=== PATIENT | female | born 1935 | race Caucasian/White ===

== ENCOUNTER 2019-08-02 13:35 | Inpatient (IN) | payer MEDICARE, BC ==
[2019-08-02] MEDS ORDERED: SODIUM CHLORIDE 0.9% 500 ML 500 ML IV STA (14:39)
--- NOTE | 2019-08-02 15:05 | ED ---
General Adult HPI - General Chief complaint: Dizziness Stated complaint: Dizziness Time Seen by Provider: 08/02/19 14:34 Source: patient, family, RN notes reviewed, old records reviewed Mode of arrival: ambulatory Limitations: no limitations - History of Present Illness Initial comments: 83-year-old female presenting for evaluation of dizziness. Patient's symptoms 7 present for the past 2-3 days. She states they do seem worse today. She had been prescribed meclizine without improvement. She states when she stands she feels like she may fall backwards. She denies URI symptoms. Denies cough. Denies chest pain or palpitations. Denies abdominal pain nausea vomiting. Denies vision changes, she does have macular degeneration and is legally blind. She denies focal numbness or weakness. She went to [facility] and was sent to the emergency department for evaluation. Only medication the patient is currently on is aspirin. - Related Data Home Medications Medication Instructions Recorded Confirmed Aspirin EC [Ecotrin] 650 mg PO DAILY 08/02/19 08/02/19 Meclizine [Antivert] 25 mg PO TID PRN 08/02/19 08/02/19 Allergies Allergy/AdvReac Type Severity Reaction Status Date / Time No Known Allergies Allergy Verified 08/02/19 14:44 Review of Systems ROS Statement: Those systems with pertinent positive or pertinent negative responses have been documented in the HPI. ROS Other: All systems not noted in ROS Statement are negative. Past Medical History Past Medical History: No Reported History History of Any Multi-Drug Resistant Organisms: None Reported Past Surgical History: Appendectomy, Orthopedic Surgery Additional Past Surgical History / Comment(s): eye surgery Past Psychological History: No Psychological Hx Reported Smoking Status: Never smoker Past Alcohol Use History: None Reported Past Drug Use History: None Reported General Exam Limitations: no limitations General appearance: alert, in no apparent distress Head exam: Present: atraumatic, normocephalic Eye exam: Present: other (Strabismus) ENT exam: Present: normal exam Neck exam: Present: normal inspection. Absent: tenderness Respiratory exam: Present: normal lung sounds bilaterally, respiratory distress Cardiovascular Exam: Present: regular rate, normal rhythm GI/Abdominal exam: Present: soft. Absent: distended, tenderness, guarding Extremities exam: Present: normal inspection, normal capillary refill. Absent: pedal edema Neurological exam: Present: alert, oriented X3, CN II-XII intact, other (Normal finger to nose, no ataxia, 5 out of 5 strength in all extremities, normal sensation) Psychiatric exam: Present: normal affect, normal mood Skin exam: Present: warm, dry, intact. Absent: cyanosis, diaphoretic Course Vital Signs 08/02/19 08/02/19 13:38 15:34 Temperature 97.4 F L Pulse Rate 67 64 Respiratory 20 18 Rate Blood Pressure 197/78 195/81 O2 Sat by Pulse 98 97 Oximetry EKG Findings - EKG Comments: EKG Findings:: EKG: Normal sinus rhythm, no ST segment elevation, T-wave abnormality in the precordial leads. Rate of 68, CA interval 168, QRS duration 90, QTC 444 Medical Decision Making - Medical Decision Making 83-year-old female presenting with dizziness and gait instability. This does not appear to be related to vertigo on exam. Blood pressure is quite elevated emergency department with no history of hypertension. There is concern for CVA related to the dizziness. CT is performed which shows chronic changes and possible old lacunar infarct with no intracranial hemorrhage or mass effect. Patient has normal CBC, normal CMP she has an EKG showing normal sinus rhythm. She has had no previous workup for CVA in the past. She is initiated on Norv asc, given full-strength aspirin in the emergency department will be admitted for further stroke workup including neurology consultation. Case is discussed with the admitting physician Dr. Hi - Lab Data Result diagrams: 08/02/19 15:01 08/02/19 15:01 Lab Results 08/02/19 08/02/19 08/02/19 Range/Units 15: 15:01 15:01 WBC 8.2 (3.8-10.6) k/uL RBC 4.73 (3.80-5.40) m/uL Hgb 14.2 (11.4-16.0) gm/dL Hct 43.2 (34.0-46.0) % MCV 91.3 (80.0-100.0) fL MCH 30.1 (25.0-35.0) pg MCHC 32.9 (31.0-37.0) g/dL RDW 14.0 (11.5-15.5) % Plt Count 286 (150-450) k/uL Neutrophils % 60 % Lymphocytes % 25 % Monocytes % 7 % Eosinophils % 6 % Basophils % 1 % Neutrophils # 4.9 (1.3-7.7) k/uL Lymphocytes # 2.0 (1.0-4.8) k/uL Monocytes # 0.5 (0-1.0) k/uL Eosinophils # 0.5 (0-0.7) k/uL Basophils # 0.1 (0-0.2) k/uL PT 9.9 (9.0-12.0) sec INR 0.9 (<1.2) Sodium 139 (137-145) mmol/L Potassium 4.3 (3.5-5.1) mmol/L Chloride 103 (98-107) mmol/L Carbon Dioxide 28 (22-30) mmol/L Anion Gap 8 mmol/L BUN 20 H (7-17) mg/dL Creatinine 0.87 (0.52-1.04) mg/dL Est GFR (CKD-EPI)AfAm 71 (>60 ml/min/1.73 sqM) Est GFR (CKD-EPI)NonAf 62 (>60 ml/min/1.73 sqM) Glucose 93 (74-99) mg/dL Calcium 9.7 (8.4-10.2) mg/dL Total Bilirubin 0.6 (0.2-1.3) mg/dL AST 23 (14-36) U/L ALT 21 (9-52) U/L Alkaline Phosphatase 93 (38-126) U/L Troponin I (0.000-0.034) ng/mL Total Protein 7.5 (6.3-8.2) g/dL Albumin 4.3 (3.5-5.0) g/dL 08/02/19 Range/Units 15:01 WBC (3.8-10.6) k/uL RBC (3.80-5.40) m/uL Hgb (11.4-16.0) gm/dL Hct (34.0-46.0) % MCV (80.0-100.0) fL MCH (25.0-35.0) pg MCHC (31.0-37.0) g/dL RDW (11.5-15.5) % Plt Count (150-450) k/uL Neutrophils % % Lymphocytes % % Monocytes % % Eosinophils % % Basophils % % Neutrophils # (1.3-7.7) k/uL Lymphocytes # (1.0-4.8) k/uL Monocytes # (0-1.0) k/uL Eosinophils # (0-0.7) k/uL Basophils # (0-0.2) k/uL PT (9.0-12.0) sec INR (<1.2) Sodium (137-145) mmol/L Potassium (3.5-5.1) mmol/L Chloride (98-107) mmol/L Carbon Dioxide (22-30) mmol/L Anion Gap mmol/L BUN (7-17) mg/dL Creatinine (0.52-1.04) mg/dL Est GFR (CKD-EPI)AfAm (>60 ml/min/1.73 sqM) Est GFR (CKD-EPI)NonAf (>60 ml/min/1.73 sqM) Glucose (74-99) mg/dL Calcium (8.4-10.2) mg/dL Total Bilirubin (0.2-1.3) mg/dL AST (14-36) U/L ALT (9-52) U/L Alkaline Phosphatase (38-126) U/L Troponin I <0.012 (0.000-0.034) ng/mL Total Protein (6.3-8.2) g/dL Albumin (3.5-5.0) g/dL Disposition Clinical Impression: Cerebrovascular accident (CVA) Disposition: ADMITTED IP TO THIS HOSP Condition: Stable Is patient prescribed a controlled substance at d/c from ED?: No Referrals: Jocy Saini MD [Primary Care Provider] - 1-2 days Decision to Admit Reason: Admit from EC Decision Date: 08/02/19 Decision Time: 16:49
[2019-08-02 15:32] LABS: Basophils # (A) 0.1 k/uL (0-0.2); Basophils % (A) 1 %; Eosinophils # (A) 0.5 k/uL (0-0.7); Eosinophils % (A) 6 %; HCT 43.2 % (34.0-46.0); HGB 14.2 gm/dL (11.4-16.0); Lymphocytes % (A) 25 %; MCH 30.1 pg (25.0-35.0); MCHC 32.9 g/dL (31.0-37.0); MCV 91.3 fL (80.0-100.0); Mean Platelet Volume 6.6; Monocytes # (A) 0.5 k/uL (0-1.0); Monocytes % (A) 7 %; Neutrophils # (A) 4.9 k/uL (1.3-7.7); Neutrophils % (A) 60 %; Platelet Count 286 k/uL (150-450); RBC 4.73 m/uL (3.80-5.40); WBC 8.2 k/uL (3.8-10.6)
--- NOTE | 2019-08-02 15:33 | CT ---
EXAMINATION TYPE: CT brain wo con DATE OF EXAM: 08/02/2019 HISTORY: Dizziness CT DLP: 1064.4 mGycm. Automated Exposure Control for Dose Reduction was Utilized. TECHNIQUE: CT scan of the head is performed without contrast. COMPARISON: None. FINDINGS: There is no acute intracranial hemorrhage or midline shift identified. There is diffuse v entricular and sulcal prominence consistent with diffuse cerebral atrophy. Findings most prominent ov er the bilateral frontal and temporal lobes . There is low-attenuation in the periventricular white m atter consistent with chronic small vessel ischemic change. Possible old lacunar infarct versus promi nent Virchow-Javed space right basal ganglia coronal image 26. Scleral calcification left globe. Visu alized sinuses are clear IMPRESSION: No acute intracranial hemorrhage or midline shift. There is moderate cerebral atrophy m ost prominent over bilateral frontal and temporal lobes and mild chronic small vessel ischemic change s noted.
[2019-08-02 15:39] LABS: INR 0.9 (<1.2); Prothrombin Time 9.9 sec (9.0-12.0)
[2019-08-02 16:02] LABS: Albumin 4.3 g/dL (3.5-5.0); Calcium 9.7 mg/dL (8.4-10.2); Potassium 4.3 mmol/L (3.5-5.1); Total Bilirubin 0.6 mg/dL (0.2-1.3); Total Protein 7.5 g/dL (6.3-8.2)
[2019-08-02] MEDS ORDERED: ASPIRIN 325 MG TAB PO STA (16:05)
[2019-08-02] MEDS ORDERED: amLODIPine 5 MG TAB PO STA (16:43)
[2019-08-02] MEDS ORDERED: ACETAMINOPHEN TAB 325 MG TAB PO PRN (16:43)
[2019-08-02] MEDS: SODIUM CHLORIDE 0.9% 1,000 ML IV SCH (17:19)
--- NOTE | 2019-08-02 17:43 | ECHOF ---
Referral Reason:Thrombus MEASUREMENTS -------- HEIGHT: 154.9 cm WEIGHT: 68.0 kg BP: RVIDd: 1.8 cm (< 3.3) IVSd: 1.8 cm (0.6 - 1.1) LVIDd: 1.9 cm (3.9 - 5.3) LVPWd: 1.5 cm (0.6 - 1.1) IVSs: 2.0 cm LVIDs: 1.1 cm LVPWs: 1.7 cm LAESV Index (A-L): 24.76 ml/m Ao Diam: 3.1 cm (2.0 - 3.7) AV Cusp: 1.8 cm (1.5 - 2.6) LA Diam: 2.7 cm (2.7 - 3.8) MV EXCURSION: 12.108 mm (> 18.000) MV EF SLOPE: 27 mm/s (70 - 150) EPSS: 0.5 cm MV E Dann: 0.81 m/s MV DecT: 248 ms MV A Dann: 0.97 m/s MV E/A Ratio: 0.84 AR PHT: 251 ms RAP: 5.00 mmHg RVSP: 19.38 mmHg FINDINGS -------- Sinus rhythm. This was a technically adequate study. The cavity size is decreased. There is severe concentric left ventricular hypertrophy. Overall le ft ventricular systolic function is normal with, an EF between 60 - 65 %. The diastolic filling pat tern is normal for the age of the patient 15.38. The right ventricle is normal in size. The left atrial size is normal. Normal LA size by volume 22+/-6 ml/m2. The right atrial size is normal. The aortic valve is trileaflet and appears structurally normal. Trace amount of aortic regurgitatio n. The mitral valve is normal. The mitral valve leaflets are mildly thickened. Mild mitral regurgita tion is present. The tricuspid valve appears structurally normal. Mild tricuspid regurgitation present. Right vent ricular systolic pressure is normal at < 35 mmHg. There is no pulmonic regurgitation present. The aortic root size is normal. Normal inferior vena cava with normal inspiratory collapse consistent with estimated right atrial pre ssure of 5 mmHg. There is a moderate, generalized pericardial effusion present. CONCLUSIONS -------- 1. Sinus rhythm. 2. This was a technically adequate study. 3. The cavity size is decreased. 4. There is severe concentric left ventricular hypertrophy. 5. Overall left ventricular systolic function is normal with, an EF between 60 - 65 %. 6. The diastolic filling pattern is normal for the age of the patient 15.38 7. The right ventricle is normal in size. 8. The left atrial size is normal. 9. Normal LA size by volume 22+/-6 ml/m2. 10. The right atrial size is normal. 11. The aortic valve is trileaflet and appears structurally normal. 12. Trace amount of aortic regurgitation. 13. The mitral valve is normal. 14. The mitral valve leaflets are mildly thickened. 15. Mild mitral regurgitation is present. 16. The tricuspid valve appears structurally normal. 17. Mild tricuspid regurgitation present. 18. Right ventricular systolic pressure is normal at < 35 mmHg. 19. There is no pulmonic regurgitation present. 20. The aortic root size is normal. 21. Normal inferior vena cava with normal inspiratory collapse consistent with estimated right atrial pressure of 5 mmHg. 22. There is a moderate, generalized pericardial effusion present. WELDER TACK: Sanjuanita Gonzales RDCS
[2019-08-02] MEDS ORDERED: LABETALOL 5 MG/ML VIAL MDV IVP STA (18:03)
--- NOTE | 2019-08-02 19:50 | US ---
EXAMINATION TYPE: US carotid duplex BILAT DATE OF EXAM: 08/02/2019 COMPARISON: NONE CLINICAL HISTORY: Stenosis. EXAM MEASUREMENTS: RIGHT: Peak Systolic Velocity (PSV) cm/sec ----- Right CCA: 70.2 ----- Right ICA: 84.2 ----- Right ECA: 105.6 ICA/CCA ratio: 1.2 RIGHT: End Diastole cm/sec ----- Right CCA: 14.2 ----- Right ICA: 16.0 ----- Right ECA: 6.0 LEFT: Peak Systolic Velocity (PSV) cm/sec ----- Left CCA: 81.4 ----- Left ICA: 64.5 ----- Left ECA: 60.8 ICA/CCA ratio: 0.8 LEFT: End Diastole cm/sec ----- Left CCA: 15.7 ----- Left ICA: 17.9 ----- Left ECA: 4.2 VERTEBRALS (direction of flow): Right Vertebral: Antegrade Left Vertebral: Antegrade Rhythm: Normal Mild atherosclerotic changes with no significant velocity increases. IMPRESSION: There is antegrade flow in the vertebral arteries. The images and measurements suggest 25-35% stenosis in both internal carotid arteries. Mild plaque formation. Criteria for Assigning % of Stenosis / Diameter reduction (Estimation based on the indirect measurements of the internal carotid artery velocities (ICA PSV). 1. Normal (no stenosis)=ICA PSV < 125 cm/s: ratio < 2.0: ICA EDV<40 cm/s. 2. Less than 50% stenosis=ICA PSV < 125 cm/s: ratio < 2.0: ICA EDV<40 cm/s. 3. 50 to 69% stenosis=ICA PSV of 125 to 230 cm/s: ration 2.0 ? 4.0: ICA EDV 40-100 cm/s. 4. Greater than 70% stenosis to near occlusion= ICA PSV > 230 cm/s: ratio > 4.0: ICA EDV > 100 cm/s. 5. Near occlusion= ICA PSV velocities may be low or undetectable: variable ratio and ICA EDV. 6. Total occlusion=unable to detect flow.
[2019-08-03 04:33] LABS: Cholesterol 283 mg/dL (<200); HDL Cholesterol 70 mg/dL (40-60); LDL Cholesterol,Calculated 179 mg/dL (0-99); Triglycerides 172 mg/dL (<150)
[2019-08-03] MEDS: SODIUM CHLORIDE 0.9% 1,000 ML IV SCH ×2 (08:30→16:52)
[2019-08-03] MEDS ORDERED: amLODIPine 5 MG TAB PO SCH (09:00)
[2019-08-03] MEDS: ASPIRIN 325 MG TAB PO SCH (16:52)
--- NOTE | 2019-08-03 19:03 | P.HPIM ---
History of Present Illness H&P Date: 08/03/19 Chief Complaint: Dizziness Ms. Ziegler is an 83-year-old female with a past medical history of macular degeneration, legally blind coming into the hospital with a chief complaint of dizziness. Patient states that her symptoms started 2 days prior to the admission. She was prescribed meclizine but did not have relief with it and so came into the hospital for further evaluation. Patient states that when she stands she feels dizzy and that she would be falling back. Patient states that her is diagnosed with Alzheimer's disease and she has been having a lot of stress because of it. Patient denies having any falls because of the dizziness. She denies having any chest pain or palpitations. No cough or difficulty in breathing. Patient denies having any nausea vomiting or diaphoresis. No abdominal pain. No dysuria or hematuria. She denies having any fevers, chills or rhinitis. Patient takes only aspirin 81 mg at home. Patient denies having any headaches, slurring of speech or weakness of her extremities. She denies having any loss of bowel or bladder contents. In the emergency department patient had blood work done showing normal hemoglobi n, sodium and pressure within normal limits. Creatinine is at 0.87 and slightly elevated BUN at 20. Troponin was less than 0.012. Patient had a CT of the brain that was negative for any acute intracranial process was showing mild chronic small vessel ischemic changes. She also had a carotid artery Doppler that was showing 25-35% stenosis in both internal carotid arteries with mild polyp formation. Echocardiogram showing ejection fraction of 60-65%. She had orthostatics checked, but after giving her IV fluids which were negative. Patient still has mild dizziness on and off. Review of Systems REVIEW OF SYSTEMS: PSYCH: No anxiety or depression. NEURO:No c/o weakness of the extremties, No facial droop, No speech abnormalities. VASCULAR: no edema HEMATOLOGIC: No history of easy bleeding and bruising . No recent infections . RESPIRATORY: No cough, No SOB, No chest discomfort. IMMUNE: No infections INTEGUMENT: no rashes OPHTHALMOLOGIC: No blurry vision and no eye discharge : No dysuria or hematuria ACCOUNT INFORMATION CLERK: No bleeding PV CARDIAC: No chest pain , shortness of breath , paroxysmal nocturnal dyspnea MUSCULOSKELETAL : No Aches or pains in the joints or muscles. GI: No abdominal pain, Nausea or vomiting. No constipation or diarrhea. Past Medical History Past Medical History: No Reported History Additional Past Medical History / Comment(s): vertigo History of Any Multi-Drug Resistant Organisms: None Reported Past Surgical History: Appendectomy, Orthopedic Surgery Additional Past Surgical History / Comment(s): eye surgery Past Anesthesia/Blood Transfusion Reactions: No Reported Reaction Past Psychological History: No Psychological Hx Reported Smoking Status: Never smoker Past Alcohol Use History: None Reported Past Drug Use History: None Reported - Past Family History Mother Family Medical History: Myocardial Infarction ([place]) Father Family Medical History: CVA/TIA Medications and Allergies Home Medications Medication Instructions Recorded Confirmed Type Aspirin EC [Ecotrin] 650 mg PO DAILY 08/02/19 08/02/19 History Meclizine [Antivert] 25 mg PO TID PRN 08/02/19 08/02/19 History Allergies Allergy/AdvReac Type Severity Reaction Status Date / Time No Known Allergies Allergy Verified 08/02/19 14:44 Physical Exam Vitals: Vital Signs Temp Pulse Pulse Pulse Pulse Pulse Resp 08/03/19 16:00 98.4 F 86 16 08/03/19 11:31 98.6 F 71 16 08/03/19 08:00 98.3 F 87 94 77 16 08/03/19 03:15 98.2 F 75 16 08/02/19 23:00 98.3 F 65 16 08/02/19 21:13 08/02/19 19:44 98.2 F 71 16 08/02/19 18:34 66 18 BP BP BP BP Pulse Ox 08/03/19 16:00 129/74 92 L 08/03/19 11:31 129/67 94 L 08/03/19 08:00 133/74 113/71 122/71 93 L 08/03/19 03:15 128/58 100 08/02/19 23:00 135/63 97 08/02/19 21:13 140/65 08/02/19 19:44 193/76 96 08/02/19 18:34 146/67 96 Intake and Output 08/03/19 08/03/19 08/03/19 06:59 14:59 22:59 Intake Total 358 240 Output Total 800 300 600 Balance -800 58 -360 Intake: Oral 358 240 Output: Urine 800 300 600 Other: Voiding Method Bedpan # Voids 1 Weight 68.6 kg GEN. APPEARANCE: alert, in no apparent distress HEAD EXAM: atraumatic, normocephalic, normal inspection EYE EXAM: Blind in both eyes. No pallor. No icterus. ENT EXAM: normal exam, mucous membranes moist NECK EXAM: normal inspection. No thyromegaly. RESPIRATORY EXAM: normal lung sounds bilaterally. No wheeze or crackles. CARDIOVASCULAR EXAM: regular rate, normal rhythm, normal heart sounds. No abnormal sounds. GI/ABDOMINAL EXAM: soft, normal bowel sounds. No guarding or rigidity or tenderness. EXTREMITIES EXAM: No pedal edema. NEUROLOGICAL EXAM: alert, oriented X3, no focal deficits. PSYCHIATRIC EXAM: normal affect, normal mood SKIN EXAM: No rash Results CBC & Chem 7: 08/02/19 15:01 08/02/19 15:01 Labs: Abnormal Lab Results - Last 24 Hours (Table) 08/02/19 Range/Units 15:01 Triglycerides 172 H (<150) mg/dL Cholesterol 283 H (<200) mg/dL LDL Cholesterol, Calc 179 H (0-99) mg/dL HDL Cholesterol 70 H (40-60) mg/dL Thrombosis Risk Factor Assmnt - Choose All That Apply Any of the Below Risk Factors Present?: Yes Each Factor Represents 1 point: Obesity (BMI >25) Each Risk Factor Represents 3 Points: Age 75 years or older Other congenital or acquired thrombophilia - If yes, enter type in comment: No Thrombosis Risk Factor Assessment Total Risk Factor Score: 4 Thrombosis Risk Factor Assessment Level: Moderate Risk Assessment and Plan Assessment: ASSESSMENT Dizziness Macular degeneration Legally blind PLAN: Patient is admitted for dizziness and so far workup has been negative head CT of the brain, carotid artery Doppler, echocardiogram. Patient still has dizziness on and off. Continue with IV fluids. Patient had only one set of troponins drawn so we will repeat troponins. Continue with current medication regimen. Further recommendations to follow depending on the progress of the pa tient.
[2019-08-04 06:20] LABS: Basophils % (A) 1 %; Eosinophils # (A) 0.4 k/uL (0-0.7); Eosinophils % (A) 6 %; HCT 37.1 % (34.0-46.0); HGB 12.1 gm/dL (11.4-16.0); Lymphocytes # (A) 1.9 k/uL (1.0-4.8); Lymphocytes % (A) 25 %; MCH 30.2 pg (25.0-35.0); MCHC 32.7 g/dL (31.0-37.0); MCV 92.4 fL (80.0-100.0); Mean Platelet Volume 6.5; Monocytes # (A) 0.6 k/uL (0-1.0); Monocytes % (A) 7 %; Neutrophils # (A) 4.7 k/uL (1.3-7.7); Neutrophils % (A) 60 %; Platelet Count 237 k/uL (150-450); RBC 4.02 m/uL (3.80-5.40); WBC 7.8 k/uL (3.8-10.6)
[2019-08-04 06:27] LABS: Calcium 8.4 mg/dL (8.4-10.2); Potassium 4.1 mmol/L (3.5-5.1)
[2019-08-04] MEDS: ASPIRIN 325 MG TAB PO SCH (08:05)
[2019-08-04] MEDS: SODIUM CHLORIDE 0.9% 1,000 ML IV SCH (10:00)
[2019-08-04 10:08] VITALS: RESP 18
[2019-08-04 11:13] VITALS: BP 133/61; PULSE 74; TEMP 98.2
--- NOTE | 2019-08-04 13:38 | P.DS ---
Providers Date of admission: 08/02/19 16:45 Expected date of discharge: 08/04/19 Attending physician: Destin Esquivel Primary care physician: Jocy Saini [facility] Course: Ms. Ziegler is an 83-year-old female with a past medical history of macular degeneration, legally blind coming into the hospital with a chief complaint of dizziness. Patient states that her symptoms started 2 days prior to the admission. She was prescribed meclizine but did not have relief with it and so came into the hospital for further evaluation. Patient states that when she stands she feels dizzy and that she would be falling back. Patient states that her is diagnosed with Alzheimer's disease and she has been having a lot of stress because of it. Patient denies having any falls because of the dizziness. She denies having any chest pain or palpitations. No cough or difficulty in breathing. Patient denies having any nausea vomiting or diaphoresis. No abdominal pain. No dysuria or hematuria. She denies having any fevers, chills or rhinitis. Patient takes only aspirin 81 mg at home. Patient denies having any headaches, slurring of speech or weakness of her extremities. She denies having any loss of bowel or bladder contents. In the emergency department patient had blood work done showing normal hemoglobin, sodium and pressure within normal limits. Creatinine is at 0.87 and slightly elevated BUN at 20. Troponin was less than 0.012. Hospital course - Patient had a CT of the brain that was negative for any acute intracranial process was showing mild chronic small vessel ischemic changes. She also had a carotid artery Doppler that was showing 25-35% stenosis in both internal carotid arteries with mild polyp formation. Echocardiogram showing ejection fraction of 60-65%. She had orthostatics checked, but after giving her IV fluids which were negative. Patient's blood pressure was running high, so the patient was started on Procardia after which her blood pressure responded. Patient is not dizzy anymore. This morning she woke up and took a shower all by herself and was not dizzy at all. Patient's and son at the bedside. She states that she is stable to go home. Vital Signs Temp 98.2 F 08/04/19 11:11 Pulse 74 08/04/19 11:11 Resp 18 08/04/19 11:11 BP 133/61 08/04/19 11:11 Pulse Ox 96 08/04/19 11:11 Intake & Output 08/03/19 08/04/19 08/04/19 18:59 06:59 18:59 Intake Total 1198 780 Output Total 900 850 900 Balance 298 -850 -120 Weight 69 kg Intake: IV 600 600 Sodium Chloride 0.9% 1, 600 600 000 ml @ 75 mls/hr IV . [id number] Rx#:[id number] Oral 598 180 Output: Urine 900 850 900 Other: Voiding Method Bedpan Toilet # Voids 1 Physical exam GEN. APPEARANCE: alert, in no apparent distress HEAD EXAM: atraumatic, normocephalic, normal inspection EYE EXAM: Blind in both eyes. No pallor. No icterus. ENT EXAM: normal exam, mucous membranes moist NECK EXAM: normal inspection. No thyromegaly. RESPIRATORY EXAM: normal lung sounds bilaterally. No wheeze or crackles. CARDIOVASCULAR EXAM: regular rate, normal rhythm, normal heart sounds. No abnormal sounds. GI/ABDOMINAL EXAM: soft, normal bowel sounds. No guarding or rigidity or tenderness. EXTREMITIES EXAM: No pedal edema. NEUROLOGICAL EXAM: alert, oriented X3, no focal deficits. PSYCHIATRIC EXAM: normal affect, normal mood SKIN EXAM: No rash - Labs CBC & Chem 7: 08/04/19 05:46 08/04/19 05:46 Labs: Abnormal Lab Results - Last 24 Hours (Table) 08/04/19 Range/Units 05:46 Chloride 109 H (98-107) mmol/L Glucose 105 H (74-99) mg/dL DISCHARGE DIAGNOSIS Dizziness - resolved Hypertension - new onset Macular degeneration Legally blind Follow-up: Discussed in detail with the patient to continue taking Procardia and her prescription is sent to her pharmacy. Patient is advised to follow up with her PCP in 2-3 days. Patient Condition at Discharge: Stable Plan - Discharge Summary Discharge Rx Participant: No New Discharge Prescriptions: New NIFEdipine XL [Procardia XL] 60 mg PO DAILY 30 Days #30 tab.[id number] Continue Meclizine [Antivert] 25 mg PO TID PRN PRN Reason: DIZZINESS Aspirin EC [Ecotrin] 650 mg PO DAILY Discharge Medication List Aspirin EC [Ecotrin] 650 mg PO DAILY 08/02/19 [History] Meclizine [Antivert] 25 mg PO TID PRN 08/02/19 [History] NIFEdipine XL [Procardia XL] 60 mg PO DAILY 30 Days #30 tab.er.24 08/04/19 [Rx] Follow up Appointment(s)/Referral(s): Jocy Saini MD [Primary Care Provider] - 1-2 days Discharge Disposition: HOME SELF-CARE
== END 2019-08-04 14:46 | disposition home or self-care (01) | DRG 305 ==
LOC: EC 13:35 → 3SCARD 16:45
PROVIDERS: ADMIT Hospitalist; ATTEND Hospitalist
DX: I10 Essential (primary) hypertension (principal); H35.30 Unspecified macular degeneration; H54.8 Legal blindness, as defined in USA; Z86.73 Personal history of transient ischemic attack (TIA), and cerebral infarction without residual deficits; R47.81 Slurred speech; R53.1 Weakness; Z82.49 Family history of ischemic heart disease and other diseases of the circulatory system; Z79.82 Long term (current) use of aspirin; Z79.899 Other long term (current) drug therapy
CPT/HCPCS: 36415; 70450; 80048; 80053; 80061; 84484; 85025; 85610; 93005; 93306; 93880; 96361; 96374; 99285

== ENCOUNTER 2023-02-03 10:31 | Day surgery (SDC) | payer BC, MEDICARE ==
[2023-02-02 11:29] VITALS: BMI 28.3
[~2023-02-03 10:31] MED LIST: LACTATED RINGERS 1,000 ML IV SCH; LIDOCAINE 1% (10MG/ML) FOR IV START INTRADERMA PRN
[2023-02-03 10:57] LABS: Glucose,Whole Blood 98 mg/dL (70-110)
[2023-02-03 10:58] VITALS: TEMP 97.2
[2023-02-03] MEDS ORDERED: PROPOFOL 10 MG/ML 20 ML VIAL IV ONE (12:04)
--- NOTE | 2023-02-03 12:18 | P.PCN ---
Date of Procedure: 02/03/23 Procedure(s) Performed: BRIEF HISTORY: Patient is a 87-year-old pleasant white female scheduled for an elective colonoscopy as a part of intermittent rectal bleeding for the last 3 months duration. PROCEDURE PERFORMED: Colonoscopy with snare polypectomy. PREOPERATIVE DIAGNOSIS: Intermittent rectal bleeding of 3 months duration. IV sedation per Anesthesia. PROCEDURE: After informed consent was obtained, the patient, was brought into the endoscopy unit. IV sedation was administered by Anesthesia under continuous monitoring. Digital rectal examination was normal. Initially the Olympus CF-160 flexible video colonoscope was then inserted in the rectum, gradually advanced into the cecum without any difficulty. Careful examination was performed as the scope was gradually being withdrawn. Ileocecal valve and the appendiceal orifice were visualized and appeared normal. Prep was excellent. Mucosa of the cecum, appeared normal. In the ascending colon there was a 1 cm polyp removed by snare polypectomy. In the hepatic flexure there was a 3 mm polyp removed by snare polypectomy. In the descending colon there was a 7 mm polyp removed by snare polypectomy. Rest of the ascending colon, transverse colon, descending colon, sigmoid colon, and rectum appeared normal. Scattered sigmoid diverticulosis. Retroflexion was performed in the rectum and small internal hemorrhoids were seen. The patient tolerated the procedure well. IMPRESSION: 1 cm ascending colon polyp serous posterior polypectomy 3 mm proximal to hepatic flexure polyp status post polypectomy 7 mm descending colon polyp status post polypectomy Scattered sigmoid diverticulosis Small internal hemorrhoids RECOMMENDATIONS: Findings of this examination were discussed with the patient is a family. She was advised to follow with the biopsy results. Recommend a high-fiber diet and take fiber supplements daily
[2023-02-03 12:59] VITALS: BP 122/70; PULSE 50; RESP 20
== END 2023-02-03 13:17 | disposition home or self-care (01) ==
LOC: ORWHC2ENDO 10:31
PROVIDERS: ATTEND Internal Medicine Gastroenterology
DX: D12.2 Benign neoplasm of ascending colon (principal); D12.3 Benign neoplasm of transverse colon; D12.4 Benign neoplasm of descending colon; K62.5 Hemorrhage of anus and rectum; K57.30 Diverticulosis of large intestine without perforation or abscess without bleeding; K64.8 Other hemorrhoids; I10 Essential (primary) hypertension; E78.5 Hyperlipidemia, unspecified; E11.9 Type 2 diabetes mellitus without complications; Z79.899 Other long term (current) drug therapy
CPT/HCPCS: 88305; 45385; J2704

== ENCOUNTER 2024-02-27 11:23 | Emergency (ER) | payer MEDICARE ==
[2024-02-27 11:40] VITALS: RESP 18
--- NOTE | 2024-02-27 11:53 | ED ---
Fall HPI - General Chief Complaint: Fall Stated Complaint: L knee pain/facial lac Time Seen by Provider: 02/27/24 11:40 Source: patient, RN notes reviewed Mode of arrival: ambulatory - History of Present Illness Initial Comments: This is an 88-year-old female presents emergency department chief complaint of a fall. Send was outside yesterday afternoon when she tripped on an outdoor dog landing and injuring her left knee sustaining multiple lacerations and ecchymosis to the head. Patient denies loss of consciousness at the time of the fall. Is denying symptoms currently of headache, dizziness, lightheadedness, nausea, vomiting. Patient is able to ambulate however states that she has pain of the left knee. 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 - Related Data Home Medications Medication Instructions Recorded Confirmed Atorvastatin Calcium 20 mg PO HS 02/02/23 02/03/23 Cholecalciferol [Vitamin D3 (125 125 mcg PO DAILY 02/02/23 02/03/23 Mcg = 5000 Iu)] Enalapril Maleate [Vasotec] 2.5 mg PO DAILY 02/02/23 02/02/23 Metoprolol Tartrate [Lopressor] 25 mg PO BID 02/02/23 02/02/23 amLODIPine [Norvasc] 5 mg PO DAILY 02/02/23 02/02/23 metFORMIN HCL [Glucophage] 500 mg PO DAILY 02/02/23 02/03/23 Allergies Allergy/AdvReac Type Severity Reaction Status Date / Time No Known Allergies Allergy Verified 02/27/24 11:40 Review of Systems ROS Statement: Those systems with pertinent positive or pertinent negative responses have been documented in the HPI. ROS Other: All systems not noted in ROS Statement are negative. Past Medical History Past Medical History: Diabetes Mellitus, Hypertension Additional Past Medical History / Comment(s): occasional vertigo with loss of balance, concussion a couple years ago., hx skin cancer., legally blind., states blood in stool. History of Any Multi-Drug Resistant Organisms: None Reported Past Surgical History: Appendectomy, Joint Replacement Additional Past Surgical History / Comment(s): eye surgery, attila total knees. Past Anesthesia/Blood Transfusion Reactions: No Reported Reaction Past Psychological History: No Psychological Hx Reported Smoking Status: Never smoker Past Alcohol Use History: None Reported Past Drug Use History: None Reported - Past Family History Mother Family Medical History: Myocardial Infarction (CA) Father Family Medical History: CVA/TIA General Exam Limitations: no limitations General appearance: alert, in no apparent distress Head exam: Present: normocephalic, normal inspection Eye exam: Present: normal appearance, PERRL, periorbital swelling (left ). Absent: scleral icterus ENT exam: Present: normal exam, mucous membranes moist, other (nasal bridge scabbing ) Neck exam: Present: normal inspection. Absent: tenderness, meningismus, lymphadenopathy Respiratory exam: Present: normal lung sounds bilaterally. Absent: respiratory distress, wheezes, rales, rhonchi, stridor Cardiovascular Exam: Present: regular rate, normal rhythm, systolic murmur. Absent: diastolic murmur, rubs, gallop, clicks GI/Abdominal exam: Present: soft, normal bowel sounds. Absent: distended, tenderness, guarding, rebound, rigid Left Knee exam: Present: full ROM, tenderness, swelling, ecchymosis. Absent: deformity, crepitus, dislocation Lower Leg exam: Present: normal inspection, full ROM Ankle exam: Present: normal inspection, full ROM Foot/Toe exam: Present: normal inspection, full ROM Neurovascular tendon exam: Present: no vascular compromise. Absent: pulse deficit Right Knee exam: Present: full ROM, ecchymosis Back exam: Present: normal inspection Neurological exam: Present: alert, oriented X3, CN II-XII intact Course Vital Signs 02/27/24 02/27/24 11:36 13:55 Temperature 97.7 F 97.8 F Pulse Rate 67 58 L Respiratory 18 18 Rate Blood Pressure 138/57 130/68 O2 Sat by Pulse 99 97 Oximetry Medical Decision Making - Medical Decision Making Was pt. sent in by a medical professional or institution (, PA, HAND OUTSIDE CUTTER, urgent care, hospital, or jail...) When possible be specific @ -No Did you speak to anyone other than the patient for history (EMS, parent, family, police, friend...)? What history was obtained from this source @ -No Did you review nursing and triage notes (agree or disagree)? Why? @ -I reviewed and agree with nursing and triage notes Were old charts reviewed (outside hosp., previous admission, EMS record, old EKG, old radiological studies, urgent care reports/EKG's, jail records)? Report findings @ -No old charts were reviewed Differential Diagnosis (chest pain, altered mental status, abdominal pain women, abdominal pain men, vaginal bleeding, weakness, fever, dyspnea, syncope, headache, dizziness, GI bleed, back pain, seizure, CVA, palpatations, mental health, musculoskeletal)? @ -contusion, abrasion, intracranial hemorrhage, Muscular strain, contusion, ligament sprain, fracture, arthritis, septic arthritis, bursitis, cellulitis, muscle spasm, nerve compression, DVT, arterial occlusion, herpes zoster, electrolyte abnormality, tumor.... This is not meant to be in all inclusive list EKG interpreted by me (3pts min.). @ -none X-rays interpreted by me (1pt min.). @ -X-ray of the knee status post total arthroplasty changes with hardware intact and appropriate alignment, no fractures identified. CT interpreted by me (1pt min.). @ -CT of the brain without contrast reveals CT of the cervical spine no acute fracture or malalignment. CT of the facial bones no acute fracture, soft tissue swelling of the forehead. U/S interpreted by me (1pt. min.). @ -None done What testing was considered but not performed or refused? (CT, X-rays, U/S, labs)? Why? @ -None What meds were considered but not given or refused? Why? @ -None Did you discuss the management of the patient with other professionals (professionals i.e. , PA, HAND OUTSIDE CUTTER, lab, RT, psych nurse, transition social worker, pantograph i engraver, teacher, loans officer, case supervisor)? Give summary @ -spoke to my attending, Dr. Brady, ER to the patient's father and he recommends that the patient receive a CT of the C-spine and facial bones for further evaluation. Was smoking cessation discussed for >3mins.? @ -No Was critical care preformed (if so, how long)? @ -No Were there social determinants of health that impacted care today? How? (Homelessness, low income, unemployed, alcoholism, drug addiction, transportation, low edu. Level, literacy, decrease access to med. care, senior living, rehab)? @ -No Was there de-escalation of care discussed even if they declined (Discuss DNR or withdrawal of care, Hospice)? DNR status @ -No What co-morbidities impacted this encounter? (DM, HTN, Smoking, COPD, CAD, Cancer, CVA, ARF, Chemo, Hep., AIDS, mental health diagnosis, sleep apnea, morbid obesity)? @ -None Was patient admitted / discharged? Hospital course, mention meds given and route, prescriptions, significant lab abnormalities, going to OR and other pertinent info. @ -D 8-year-old female with chief complaint of a fall. On examination patient is noted to have ecchymosis of the right superior forehead and abrasion to the superior nasal bridge. On palpation patient is denying symptoms of facial pain. Patient is neurologically intact, no sings of cervical neck tenderness. She also has ecchymosis of the right and left knee, left knee is edematous and pain with range of motion. Patient was evaluated via CT of the brain and x-ray of the knee for further evaluation. My attending recommends that the patient u ndergo further imaging of the neck and facial bones to rule out acute pathology, patient is in agreement with this. CT of the cervical spine and facial bones no acute fracture. Patient received tetanus vaccination approximately 4 years ago therefore she has not required receive an additional dose at this time. All questions answered at bedside and strict return parameters discussed with the patient was verbalized understanding. The patient continue to use Tylenol and Motrin at home for symptomatic relief of knee pain and continuation of resting, ice and elevate the left knee. Case discussed with Dr. Brady. Undiagnosed new problem with uncertain prognosis? @ -No Drug Therapy requiring intensive monitoring for toxicity (Heparin, Nitro, Insulin, Cardizem)? @ -No Were any procedures done? @ -No Diagnosis/symptom? @ -Fall, contusion to forehead and left eye, abrasion of nose, left knee pain Acute, or Chronic, or Acute on Chronic? @ -acute Uncomplicated (without systemic symptoms) or Complicated (systemic symptoms)? @ -uncomplicated Side effects of treatment? @ -No Exacerbation, Progression, or Severe Exacerbation? @ -No Poses a threat to life or bodily function? How? (Chest pain, [place], CA, pneumonia, PE, COPD, DKA, ARF, appy, cholecystitis, CVA, Diverticulitis, Homicidal, Suicidal, threat to staff... and all critical care pts) @ -No Disposition Clinical Impression: Fall, Left knee pain, Facial bruising Disposition: HOME SELF-CARE Condition: Good Instructions (If sedation given, give patient instructions): Fall Prevention for Older Adults (ED) Additional Instructions: Return to the emergency department if symptoms worsen not proved. Continue to take Tylenol Motrin at home as needed for symptomatic relief. Continue to ice, rest, elevate the left knee. Is patient prescribed a controlled substance at d/c from ED?: No Referrals: Jocy Saini MD [Primary Care Provider] - 1-2 days Time of Disposition: 13:53
--- NOTE | 2024-02-27 12:28 | XR ---
EXAMINATION TYPE: XR knee complete LT DATE OF EXAM: 02/27/2024 12:16 PM CLINICAL INDICATION:Female, 88 years old with history of fall, ecchymosis, pain; PHH COMPARISON: None. TECHNIQUE: XR knee complete LT; examined in Frontal, lateral and oblique projections. FINDINGS: Status post total knee arthroplasty changes with hardware in appropriate alignment and in tact. No evidence of fracture. Atherosclerosis of the arterial vasculature .A fabella is present. IMPRESSION: Status post total knee arthroplasty changes with hardware intact and appropriate alignment. No fractu res identified.
--- NOTE | 2024-02-27 12:39 | CT ---
EXAMINATION TYPE: CT brain wo con CT DLP: 1095.4 mGycm, Automated exposure control for dose reduction was used. DATE OF EXAM: 02/27/2024 12:32 PM COMPARISON: 08/02/2019. CLINICAL INDICATION:Female, 88 years old with history of fall, ecchymosis, fall, ecchymosis TECHNIQUE: Brain: Axial CT images of the brain were obtained with coronal and sagittal reformats created and rev iewed. Contrast used: None. Oral contrast used: None. FINDINGS: Brain: Extra-axial spaces: No abnormal extra-axial fluid collections. Ventricular system: Within normal limits Cerebral parenchyma: Right basal ganglia prominent perivascular space versus remote injury. Cerebral atrophy. No acute intraparenchymal hemorrhage or mass effect. The saeed-white junction is well differ entiated. Scattered hypoattenuating areas are seen within the white matter. Cerebellum: Unremarkable. Mass effect: No evidence of midline shift. Intracranial vasculature: unremarkable Soft tissues: Normal. Calvarium/osseous structures: No depressed skull fracture. Paranasal sinuses and mastoid air cells: Mild scattered paranasal sinus disease. Visualized orbits: Orbital contents are intact. IMPRESSION: 1. No acute intracranial process. 2. Nonspecific white matter changes, likely secondary to chronic small vessel ischemic disease.
--- NOTE | 2024-02-27 13:46 | CT ---
EXAMINATION TYPE: CT cervical spine wo con CT DLP: 249.4 mGycm, Automated exposure control for dose reduction was used. DATE OF EXAM: 02/27/2024 1:35 PM COMPARISON: 02/27/2024. CLINICAL INDICATION:Female, 88 years old with history of fall; TECHNIQUE: Axial CT images from the skull base to the inferior aspect of T2 we obtained without intra venous contrast. Coronal and sagittal reformatted images were also reviewed. Contrast used: mL of , (if blank None) Oral contrast used: (if blank None) FINDINGS: Fracture: None. Osseous structures: Multilevel degenerative disc disease changes with endplate spurring and disc oste ophyte complex's. Ankylosis of the right transverse process of C4 on C5. Vertebral alignment: Grade 1 anterolisthesis of C3 on C4. Spinal canal/Neural Foramina: No evidence of significant spinal canal narrowing. No evidence for sign ificant neural foraminal stenosis. Neck soft tissues: Prevertebral soft tissues are within normal limits. Other: The airway is patent. The lung apices are clear. Atherosclerosis of the carotid bifurcations. IMPRESSION: 1. No evidence of cervical spine fracture. 2. Moderate multilevel degenerative disc disease.
--- NOTE | 2024-02-27 13:52 | CT ---
EXAMINATION TYPE: CT facial bones wo con CT DLP: 433.9 mGycm, Automated exposure control for dose reduction was used. DATE OF EXAM: 02/27/2024 1:35 PM COMPARISON: CT same day.. CLINICAL INDICATION:Female, 88 years old with history of fall; PHH, Fall TECHNIQUE: Multiple unenhanced axial CT images were obtained of the facial bones soft tissue and bone windows. Coronal, axial and sagittal reformatted images were also provided in soft tissue and bone windows and submitted for interpretation Contrast used: mL of , (none if empty) Oral contrast used: (none if empty) FINDINGS: There is no evidence of fracture, subluxation, dislocation. There is a small amount of foreign edema along the scalp/forehead. The orbital contents are unremarkable.The temporal-mandibular joints appear symmetric. The visualized portion of the paranasal sinuses appear clear. IMPRESSION: * No evidence of facial bone fracture. * Right forehead edema.
[2024-02-27 13:56] VITALS: BP 130/68; PULSE 58; TEMP 97.8
== END 2024-02-27 14:11 | disposition home or self-care (01) ==
LOC: EC 11:23
DX: S00.83XA Contusion of other part of head, initial encounter (principal); M25.562 Pain in left knee; W01.0XXA Fall on same level from slipping, tripping and stumbling without subsequent striking against object, initial encounter
CPT/HCPCS: 70450; 70486; 72125; 99284